=== PATIENT | female | born 2000 | race African-American/Black ===

== ENCOUNTER 2020-05-29 01:22 | Emergency (ER) | payer MEDICAID, SELFPAY ==
[2020-05-29 01:24] VITALS: BP 131/88; PULSE 67; RESP 20; TEMP 37.2; O2SAT 100
--- NOTE | 2020-05-29 01:51 | ED.FEMALEGU ---
HPI - Female Genitourinary General Chief complaint: Vaginal Bleeding Stated complaint: vaginal bleeding Time Seen by Provider: 05/29/20 01:41 History of Present Illness HPI Narrative: Patient is a 19-year-old female who presents ER with vaginal bleeding. Reports she is been on her period for the last 3 to 4 days. It continues to get heavier each day. This evening she was lying in bed and just felt very weak and lightheaded like she could not get up. No syncope. No chest pain or chest pressure. She reports persistent lower abdominal cramping. She took Midol. She did take some Plan B couple weeks ago. She does not have positive test. Related Data Allergies Allergy/AdvReac Type Severity Reaction Status Date / Time No Known Allergies Allergy Verified 05/29/20 02:19 Review of Systems Constitutional: Constitutional: Denies chills Comments: weak Gastrointestinal: Gastrointestinal: Reports abdominal pain, Denies diarrhea, Denies nausea and Denies vomiting Genitourinary: Genitourinary: Reports abnormal vaginal bleeding, Denies nocturia, Denies dysuria and Denies vaginal discharge Neurologic: Reports dizziness and Denies syncope PMFSH Past Medical History Medical History (Updated 05/29/20 @ 02:19 by Derik Freed MD) Asthma Surgical History Surgical History (Updated 05/29/20 @ 01:54 by Derik Freed MD) No pertinent past surgical history Social History Social History (Updated 05/29/20 @ 01:55 by Derik Freed MD) Smoking status: Never smoker Gender identity (if verbalized by the patient): Female Exam Narrative: Exam Narrative: GENERAL: Well-appearing, well-nourished, and in no acute distress. HEAD: Normocephalic, atraumatic. EYES: PERRL and EOMI. ENT: Mucous membranes moist. TMs normal bilaterally. CHEST: Clear to auscultation. No respiratory distress. HEART: Regular rate and rhythm. Normal peripheral pulses. ABDOMEN: Soft, nontender, nondistended. EXTREMITIES: Normal range of motion. No edema. NEURO: Alert and oriented x3. Course Course Emergency Course: Patient became very dizzy when lying down flat. Suspect patient has peripheral vertigo. She is refusing blood draw and IV fluid. Will give meclizine. Vital Signs Vital signs: Vital Signs Temperature 99.0 F 05/29/20 01:24 Pulse Rate 67 05/29/20 01:24 Respiratory Rate 20 05/29/20 01:24 Blood Pressure 131/88 05/29/20 01:24 Pulse Oximetry 100 05/29/20 01:24 Temperature 99.0 F 05/29/20 01:24 Pulse Rate 78 05/29/20 01:58 Respiratory Rate 20 05/29/20 01:24 Blood Pressure 130/94 H 05/29/20 01:58 Pulse Oximetry 100 05/29/20 01:24 MDM - Female Genitourinary Lab Data Labs: UCG Bedside Result Negative Reference Range: Negative Discharge Plan Discharge Clinical Impression: Vertigo, Menorrhagia Patient Disposition: Home, Self-Care Condition: Stable Instructions: Benign Paroxysmal Positional Vertigo (ED), Menorrhagia (ED) Additional Instructions: Return the ER if you have chest pain or shortness of breath, you cannot keep down food or water, you lose consciousness, you have additional concerns. Prescriptions: New meclizine 25 mg tablet 25 mg PO TID PRN (Reason: motion sickness) Qty: 14 RF: 0 Follow-up/Referrals: Merlin Cruz MD [Physician] - 1 Week Gary Lan MD [Physician] - 1 Week PHYSICIAN,DINKEY MOTOR OPERATOR [Primary Care Provider] - None
[2020-05-29 01:56] VITALS: BP 127/78; PULSE 66
[2020-05-29 01:58] VITALS: BP 130/94; PULSE 78
[2020-05-29] MEDS: MECLIZINE HCL 25 MG TABLET PO (02:25)
[2020-05-29 02:51] VITALS: BP 124/72; PULSE 72; RESP 18; O2SAT 98
== END 2020-05-29 03:14 | disposition home or self-care (01) ==
PROVIDERS: Emergency Provider Emergency Medicine
DX: N92.0 Excessive and frequent menstruation with regular cycle (principal); R42 Dizziness and giddiness; J45.909 Unspecified asthma, uncomplicated
CPT/HCPCS: 81025; 99283; A9270

== ENCOUNTER 2022-06-10 12:33 | Emergency (ER) | payer OTHER, SELFPAY ==
--- NOTE | ~2022-06-10 | CT_ITS ---
EXAMINATION: CT brain wo con DATE: 06/10/2022 15:37 INDICATION: Dizziness. TECHNIQUE: Computed tomography (CT) of the head was performed without intravenous contrast. The mA wa s adjusted according to patient size. Iterative reconstruction technique was employed. The dose-lengt h product was 605.33 mGy-cm. COMPARISON: None FINDINGS: There is no intracranial hemorrhage, acute infarction, or abnormal intracranial mass lesion . The ventricles are normal in size. The paranasal sinuses are clear. The mastoid air cells are mo l. The orbits are normal. IMPRESSION: 1. Normal brain. Reviewed, dictated and finalized at location A. IMPRESSION: 1. Normal brain.
[2022-06-10 12:35] VITALS: BP 125/68; PULSE 67; RESP 18; TEMP 37; O2SAT 100
[2022-06-10 13:39] LABS: Basophils Percent Auto 0.3 % (0.2-1.2); Eosinophils Absolute Auto 0.1 K/mm3 (0-0.3); Eosinophils Percent Auto 1.5 % (0-4.4); Hematocrit 34.3 % (37.0-47.0); Hemoglobin 9.8 g/dL (12.0-15.0); Immature Granulocyte Absolute 0.01 K/mm3 (0.00-0.031); Immature Granulocyte Percent A 0.1 % (0-0.5); Lymphocytes Absolute Auto 2.23 K/mm3 (0.9-3.2); Lymphocytes Percent Auto 30.8 % (18.3-44.2); Mean Corpuscular HGB Conc 28.6 g/dl (32-36); Mean Corpuscular Hemoglobin 20.5 pg (26-34); Mean Corpuscular Volume 71.8 fl (80-100); Mean Platelet Volume 9.8 fl (7.4-10.4); Monocytes Absolute Auto 0.6 K/mm3 (0.1-0.6); Monocytes Percent Auto 7.9 % (2.6-8.5); Neutrophils Absolute Auto 4.3 K/mm3 (1.3-6.7); Neutrophils Percent Auto 59.4 % (45.5-73.1); Platelet Count Result 271 k/mm3 (150-375); Red Blood Count 4.78 M/mm3 (4.2-5.4); Red Cell Distribution Width 16.2 % (11.5-14.5); White Blood Count 7.2 K/mm3 (4.5-10.0)
[2022-06-10 13:49] LABS: Appearance Urine Slightly Cloudy (Clear); Bilirubin Urine 1+ (Negative); Blood Urine Negative (Negative); Color Urine Yellow (Yellow); Glucose Urine UA Negative (Negative); Ketones Urine Negative (Negative); Leukocyte Esterase Ur 1+ LEU/UL (Negative); Nitrate Urine Negative (Negative); Protein Urine Negative (Negative); Specific Grav Ur 1.025 (1.001-1.035)
[2022-06-10 14:09] LABS: Mucus Urine Heavy /lpf; RBC Urine 0-2 /hpf (0-2); Squamous Epithelial Cell Urine Many /hpf (Few)
[2022-06-10 14:13] LABS: Add Urine Microscopic? YES
--- NOTE | 2022-06-10 14:13 | PC.NURSE ---
Patient refusing IV until seen by provider.
[2022-06-10 14:24] LABS: Pregnancy On Board Control Positive; Urine Pregnancy Test Negative
[2022-06-10 14:30] LABS: Alanine Aminotransferase 12 U/L (6-35); Albumin Level 4.7 g/dL (3.5-5.1); Alkaline Phosphatase 68 U/L (38-126); Anion Gap 13 mmol/L (8-16); Aspartate Amino Transferase 22 U/L (14-36); Bilirubin,Total 0.8 mg/dL (0.2-1.3); Blood Urea Nitrogen 8 mg/dL (7-17); Carbon Dioxide 26 mmol/L (22-30); Chloride 101 mmol/L (98-107); Estimated CRCL calculation 113 ml/min; Estimated Glomerular Filt Rate > 60; Glucose 95 mg/dL (65-110); Lipase 30 U/L (23-300); Potassium 4.1 mmol/L (3.4-5.0); Sodium 140 mmol/L (137-145)
--- NOTE | 2022-06-10 14:36 | PC.NURSE ---
EDP at bedside to assess pt.
--- NOTE | 2022-06-10 14:58 | ED.DIZZY ---
HPI - Dizziness General Chief Complaint: Dizziness Stated Complaint: lightheaded, vomiting Time Seen by Provider: 06/10/22 13:44 History of Present Illness HPI Narrative: 21-year-old female presents the emergency room with gradual onset of dizziness over 1 week. Patient states that dizziness is occurring more regularly. Denies any known head injury or trauma. Denies vision or hearing changes. States became nauseated 2 days ago. Denies any alleviating or aggravating factors with her dizziness. Related Data Allergies Allergy/AdvReac Type Severity Reaction Status Date / Time No Known Allergies Allergy Verified 06/10/22 14:25 Review of Systems Review of Systems: CONSTITUTIONAL: Denies fever, chills, or sweats. EYES: Denies visual changes, redness, or discharge. ENT: Denies rhinorrhea, congestion, sore throat, or otalgia. CARDIOVASCULAR: Denies chest pain, palpitations, or edema. RESPIRATORY: Denies cough or dyspnea. GASTROINTESTINAL: Denies abdominal pain, nausea, vomiting, or diarrhea. GENITOURINARY: Denies dysuria or hematuria. SKIN: Denies rash or itching. MUSCULOSKELETAL: Denies back pain, joint pain, or myalgia. NEUROLOGIC: Reports dizziness PSYCHIATRIC: Denies anxiety or depression. PMFSH Past Medical History Medical History Asthma Surgical History Surgical History No pertinent past surgical history Social History Social History Smoking status: Never smoker Gender identity (if verbalized by the patient): Female Exam Narrative: GENERAL: Well-appearing, well-nourished, no physical limitations, and in no acute distress. HEAD: Normocephalic, atraumatic. EYES: Conjunctivae normal, PERRLA and EOMI. ENT: External nose normal, Nares clear, no rhinorrhea or epistaxis. Mucous membranes moist. Oropharynx without tonsillar hypertrophy exudate or other lesions. External ears normal, bilateral TMs normal bilaterally NECK: Supple. No meningeal signs. CHEST: Clear to auscultation. No respiratory distress. No wheezes rales or rhonchi. No tenderness. HEART: Regular rate and rhythm. No murmur heard. Normal peripheral pulses. EXTREMITIES: Normal range of motion. No edema. No clubbing or cyanosis SKIN: Warm, dry, no rash. No noted wounds NEURO: No focal deficits. Alert and oriented x3. MAEW. CN's II-XI intact bilaterally, normal gait PSYCH: Cooperative. Normal mood and affect. Course Vital Signs Vital signs: Vital Signs Temperature 37.0 C 06/10/22 12:35 Pulse Rate 67 06/10/22 12:35 Respiratory Rate 18 06/10/22 12:35 Blood Pressure 125/68 06/10/22 12:35 Pulse Oximetry 100 06/10/22 12:35 Temperature 37.0 C 06/10/22 12:35 Pulse Rate 67 06/10/22 12:35 Respiratory Rate 18 06/10/22 12:35 Blood Pressure 125/68 06/10/22 12:35 Pulse Oximetry 100 06/10/22 12:35 MDM - Dizziness MDM Narrative Medical decision making narrative: 21-year-old female presented with gradual worsening dizziness. No alleviating or aggravating factors. CT scan showed no intracranial abnormalities. Patient was found to be slightly anemic. Recommended she start on iron supplementation and follow-up with primary care physician. Lab Data Result diagrams: 06/10/22 13:22 06/10/22 13:22 Labs: Lab Results 06/10/22 06/10/22 06/10/22 Range/Units 13:22 13:22 13:30 WBC 7.2 (4.5-10.0) K/mm3 RBC 4.78 (4.2-5.4) M/mm3 Hgb 9.8 L (12.0-15.0) g/dL Hct 34.3 L (37.0-47.0) % MCV 71.8 L (80-100) fl MCH 20.5 L (26-34) pg MCHC 28.6 L (32-36) g/dl RDW 16.2 H (11.5-14.5) % Plt Count 271 (150-375) k/mm3 MPV 9.8 (7.4-10.4) fl Immature Gran % (Auto) 0.1 (0-0.5) % Neut % (Auto) 59.4 (45.5-73.1) % Lymph % (Auto) 30.8 (18.3-44.2) % [place] % (Auto) 7.9 (2.6-8.5
[2022-06-10 16:13] VITALS: BP 116/83; PULSE 63; RESP 18; O2SAT 99
== END 2022-06-10 16:15 | disposition home or self-care (01) ==
PROVIDERS: Emergency Medicine; Emergency Provider Nurse Practitioner Family
DX: R42 Dizziness and giddiness (principal)
CPT/HCPCS: 36415; 70450; 80053; 81001; 81025; 83690; 85025; 99284

== ENCOUNTER 2023-10-10 13:24 | Emergency (ER) | payer OTHER, SELFPAY ==
--- NOTE | ~2023-10-10 | XR_ITS ---
EXAMINATION: XR chest 2V DATE: 10/10/2023 14:39 INDICATION: Chest pain. Cough. TECHNIQUE: Frontal and lateral views of the chest were obtained. COMPARISON: None. FINDINGS: There is no pneumonia, pleural effusion, or pneumothorax. The heart size is normal. IMPRESSION: 1. No acute cardiopulmonary disease. Reviewed, dictated and finalized at location A. E SANDBLASTER
--- NOTE | 2023-10-10 13:28 | ECG_ITS ---
Measurements Intervals [place] Rate: 88 P: 42 NE: 129 QRS: 43 QRSD: 84 T: 16 QT: 333 QTc: 405 Interpretive Statements SINUS RHYTHM NORMAL ECG NO PREVIOUS ECG AVAILABLE FOR COMPARISON Electronically Signed On 10-10-2023 13:41:39 [employer] by Aleksandr Bill D.O.
[2023-10-10 13:33] VITALS: BP 123/87; PULSE 83; RESP 18; TEMP 36.7; O2SAT 98
[2023-10-10 14:15] VITALS: O2SAT 100
[2023-10-10 14:24] LABS: Basophils Percent Auto 0.1 % (0.2-1.2); Eosinophils Absolute Auto 0.2 K/mm3 (0-0.3); Eosinophils Percent Auto 2.4 % (0-4.4); Hematocrit 36.7 % (37.0-47.0); Hemoglobin 10.4 g/dL (12.0-15.0); Immature Granulocyte Absolute 0.02 K/mm3 (0.00-0.031); Immature Granulocyte Percent A 0.3 % (0-0.5); Lymphocytes Absolute Auto 1.26 K/mm3 (0.9-3.2); Lymphocytes Percent Auto 17.6 % (18.3-44.2); Mean Corpuscular HGB Conc 28.3 g/dl (32-36); Mean Corpuscular Hemoglobin 20.4 pg (26-34); Mean Corpuscular Volume 72.1 fl (80-100); Mean Platelet Volume 9.3 fl (7.4-10.4); Monocytes Absolute Auto 1.5 K/mm3 (0.1-0.6); Neutrophils Absolute Auto 4.2 K/mm3 (1.3-6.7); Neutrophils Percent Auto 58.6 % (45.5-73.1); Platelet Count Result 275 k/mm3 (150-375); Red Blood Count 5.09 M/mm3 (4.2-5.4); Red Cell Distribution Width 16.9 % (11.5-14.5); White Blood Count 7.2 K/mm3 (4.5-10.0)
[2023-10-10 14:26] LABS: Influenza A QL RT-PCR Negative (Negative); Influenza B QL RT-PCR Negative (Negative); RSV RNA, RT-PCR Negative (Negative); SARS-CoV-2 RNA PCR Positive (Negative)
[2023-10-10 14:35] LABS: INR 1.1; Prothrombin Time 14.3 Seconds (11.1-14.7)
[2023-10-10 14:36] LABS: Alanine Aminotransferase 12 U/L (6-35); Albumin Level 4.2 g/dL (3.5-5.1); Alkaline Phosphatase 81 U/L (38-126); Anion Gap 8 mmol/L (8-16); Aspartate Amino Transferase 23 U/L (14-36); Bilirubin,Total 0.7 mg/dL (0.2-1.3); Blood Urea Nitrogen 6 mg/dL (7-17); Carbon Dioxide 25 mmol/L (22-30); Chloride 103 mmol/L (98-107); Estimated CRCL calculation 98 ml/min; Estimated Glomerular Filt Rate > 60; Glucose 79 mg/dL (65-110); Lipase 40 U/L (23-300); Potassium 3.9 mmol/L (3.4-5.0); Sodium 136 mmol/L (137-145)
[2023-10-10 14:36] LABS: Partial Thromboplastin Time 35.5 SECONDS (22.3-36.8)
[2023-10-10 14:47] LABS: Troponin I < 0.012 ng/mL (0.000-0.034)
[2023-10-10 14:57] LABS: Anisocytosis 2+ (NORMAL); Hypochromasia 2+ (NORMAL); Ovalocytes 1+ (NORMAL); Platelet Estimate Adequate (Adequate)
[2023-10-10 14:58] LABS: Schistocytes None Seen (NORMAL)
[2023-10-10 15:30] VITALS: BP 108/89
--- NOTE | 2023-10-10 15:56 | ED.CHESTPAIN ---
HPI - Chest Pain General Chief Complaint: Chest Pain Stated Complaint: Cough, emesis, lightheaded, Time Seen by Provider: 10/10/23 14:15 History of Present Illness HPI narrative: 22-year-old female presenting with URI symptoms. States that for the last several days she has had a cough that is increasingly painful. States that it hurts in her chest when she coughs. States that she also threw up several times last night and she has been feeling a bit lightheaded. No shortness of breath, leg swelling, fevers, abdominal pain. Patient is concerned that she may be . Related Data Allergies Allergy/AdvReac Type Severity Reaction Status Date / Time No Known Allergies Allergy Verified 06/10/22 14:25 Review of Systems Review of Systems: All systems reviewed & are unremarkable except as noted in HPI and below PMFSH Past Medical History Medical History Asthma Surgical History Surgical History No pertinent past surgical history Social History Social History Smoking status: Never smoker Gender identity (if verbalized by the patient): Female Exam Narrative: GENERAL: Well-appearing, Nontoxic, no acute distress HEAD: Normocephalic, atraumatic. EYES: PERRLA and EOMI. ENT: grossly unremarkable NECK: Supple. CHEST: Clear to auscultation. No respiratory distress. HEART: Regular rate and rhythm ABDOMEN: Soft, nontender, nondistended EXTREMITIES: Normal range of motion. No edema. SKIN: Warm, dry, no rash. NEURO: No focal deficits. Alert and oriented x3. PSYCH: Normal mood and affect. Course Vital Signs Vital signs: Vital Signs Temperature 98.1 F 10/10/23 13:33 Pulse Rate 83 10/10/23 13:33 Respiratory Rate 18 10/10/23 13:33 Blood Pressure 123/87 10/10/23 13:33 Pulse Oximetry 98 10/10/23 13:33 Oxygen Delivery Room Air 10/10/23 13:33 Temperature 98.1 F 10/10/23 13:33 Pulse Rate 91 10/10/23 17:00 Respiratory Rate 16 10/10/23 17:00 Blood Pressure 121/75 10/10/23 17:00 Pulse Oximetry 100 10/10/23 17:00 Oxygen Delivery Room Air 10/10/23 14:15 MDM - Chest Pain MDM Narrative Medical decision making narrative: 22-year-old female presenting with URI symptoms. vitals are stable. Exam is unremarkable. Blood work is unremarkable. Patient is positive for COVID-19. She is PERC negative. Urine is contaminated, does not look infected. Patient is safe for outpatient management. Appropriate return precautions given. Advised PCP follow-up. Discharged in stable condition. Lab Data 10/10/23 14:18 10/10/23 14:18 Labs: Lab Results 10/10/23 10/10/23 10/10/23 Range/Units 13:42 14:18 14:19 WBC 7.2 (4.5-10.0) K/mm3 RBC 5.09 (4.2-5.4) M/mm3 Hgb 10.4 L (12.0-15.0) g/dL Hct 36.7 L (37.0-47.0) % MCV 72.1 L (80-100) fl MCH 20.4 L (26-34) pg MCHC 28.3 L (32-36) g/dl RDW 16.9 H (11.5-14.5) % Plt Count 275 (150-375) k/mm3 MPV 9.3 (7.4-10.4) fl Immature Gran % (Auto) 0.3 (0-0.5) % Neut % (Auto) 58.6 (45.5-73.1) % Lymph % (Auto) 17.6 L (18.3-44.2) % [place] % (Auto) 21.0 H (2.6-8.5) % Eos % (Auto) 2.4 (0-4.4) % Baso % (Auto) 0.1 L (0.2-1.2) % Lymph # (Auto) 1.26 (0.9-3.2) K/mm3 [place] # (Auto) 1.5 H (0.1-0.6) K/mm3 Eos # (Auto) 0.2 (0-0.3) K/mm3 Baso # (Auto) 0.0 (0.0-0.1) K/mm3 Abs Immat Gran (auto) 0.02 (0.00-0.031) K/mm3 Absolute Neuts (auto) 4.2 (1.3-6.7) K/mm3 Absolute Nucleated RBC 0.0 (0.0-0.012) K/mm3 Nucleated RBC % 0.0 (0.0-0.2) % Platelet Estimate Adequate (Adequate) Hypochromasia 2+ (NORMAL) Anisocytosis 2+ (NORMAL) Ovalocytes 1+ (NORMAL) Schistocytes None seen (NORMAL) PT 14.3 (11.1-14.7) Seconds INR
[2023-10-10] MEDS: SODIUM CHLORIDE 0.9% IV 1,000 ML 999 ML IV CONT (16:02)
[2023-10-10 16:25] LABS: Pregnancy On Board Control Positive; Urine Pregnancy Test Negative
[2023-10-10 16:36] LABS: Appearance Urine Cloudy (Clear); Bacteria Urine 4+ /hpf; Bilirubin Urine Negative (Negative); Blood Urine Negative (Negative); Color Urine Yellow (Yellow); Glucose Urine UA Negative (Negative); Ketones Urine 3+ mg/dL (Negative); Leukocyte Esterase Ur Trace LEU/UL (Negative); Mucus Urine Present /lpf; Need Manual Microscopic Reviewed; Nitrate Urine Negative (Negative); Protein Urine Trace mg/dL (Negative); RBC Urine 0-2 /hpf (0-2); Squamous Epithelial Cell Urine Many /hpf (Few); WBC Urine 0-5 /hpf
[2023-10-10 16:37] LABS: Add Urine Microscopic? YES; Specific Grav Ur 1.038 (1.001-1.035)
[2023-10-10] MEDS: ONDANSETRON INJ 4 MG/2 ML VIAL IV PUSH (16:44)
[2023-10-10] MEDS: KETOROLAC 30 MG/ML VIAL (*BKC) IV PUSH (16:44)
[2023-10-10 17:00] VITALS: BP 121/75; PULSE 91; RESP 16; O2SAT 100
[2023-10-10 17:32] LABS: Troponin I < 0.012 ng/mL (0.000-0.034)
[2023-10-10 17:50] VITALS: BP 124/85; PULSE 78; RESP 16; O2SAT 98
== END 2023-10-10 17:51 | disposition home or self-care (01) ==
PROVIDERS: Physician Assistant; Emergency Provider Emergency Medicine
DX: U07.1 COVID-19 (principal); J45.909 Unspecified asthma, uncomplicated
CPT/HCPCS: 36415; 71046; 80053; 81001; 81025; 83690; 84484; 85025; 85610; 85730; 87637; 93005; 96361; 96374; 99284; J1885; J2405; J7030